=== PATIENT | female | born 1960 | race Caucasian/White ===

== ENCOUNTER 2016-07-31 10:57 | Emergency (ER) | payer OTHER | END 2016-07-31 12:55 | disposition home or self-care (01) | LOC: ER1 10:57 | DX: S39.012A Strain of muscle, fascia and tendon of lower back, initial encounter (principal); E11.9 Type 2 diabetes mellitus without complications; I10 Essential (primary) hypertension; Z88.5 Allergy status to narcotic agent; Z90.49 Acquired absence of other specified parts of digestive tract; X50.9XXA Other and unspecified overexertion or strenuous movements or postures, initial encounter; Y92.69 Other specified industrial and construction area as the place of occurrence of the external cause; Y99.0 Civilian activity done for income or pay; Z79.899 Other long term (current) drug therapy | CPT/HCPCS: 72131; 81001; 99284 ==

== ENCOUNTER → 2016-08-11 | Outpatient (CLI) | payer OTHER | LOC: KOH-I 08-04 08:30 | DX: R07.89 Other chest pain (principal); E11.65 Type 2 diabetes mellitus with hyperglycemia; E78.2 Mixed hyperlipidemia; I10 Essential (primary) hypertension; R53.83 Other fatigue | CPT/HCPCS: 74176; Q9962 ==

== ENCOUNTER → 2016-08-11 | Outpatient (CLI) | payer OTHER | LOC: LAB 09:06 | DX: E11.65 Type 2 diabetes mellitus with hyperglycemia (principal); E78.2 Mixed hyperlipidemia; I10 Essential (primary) hypertension; R07.89 Other chest pain; R53.83 Other fatigue | CPT/HCPCS: 36415; 82565; 84520 ==

== ENCOUNTER 2020-08-23 06:44 | Emergency (ER) | payer OTHER ==
[~2020-08-23 06:44] MED LIST: AMLODIPINE BESY10 MG PO
[2020-08-23] MEDS ORDERED: DIOVAN80 MG PO (07:37)
[2020-08-24 16:11] LABS: LYME IGG/IGM AB <0.91 ISR (0.00-0.90)
== END 2020-08-23 07:55 | disposition home or self-care (01) ==
LOC: ER1 06:44
PROVIDERS: Physician Assistant
DX: I86.3 Vulval varices (principal); I10 Essential (primary) hypertension; E11.9 Type 2 diabetes mellitus without complications; Z91.19 Patient's noncompliance with other medical treatment and regimen
CPT/HCPCS: 86618; 99281

== ENCOUNTER 2020-10-17 06:19 | Emergency (ER) | payer OTHER ==
[~2020-10-17 06:19] MED LIST changes: +DIOVAN80 MG PO
[2020-10-17 07:55] LABS: HEMOGLOBIN 14.8 gm/dl (12.3-15.3); RED BLOOD COUNT 4.92 M/UL (4.00-5.10); WHITE BLOOD COUNT 8.5 K/UL (4.5-11.0)
[2020-10-17 08:11] LABS: BUN/CREATININE RATIO 13 (0-10)
[2020-10-17] MEDS ORDERED: FLOMAX 0.4 MG0.4 MG PO (08:28)
[2020-10-17] MEDS ORDERED: ZOFRAN4 MG PO (09:31)
[2020-10-17] MEDS ORDERED: HYDROCODON-ACE1 EAC4 PO (09:53)
== END 2020-10-17 11:53 | disposition home or self-care (01) ==
LOC: ER1 06:19
PROVIDERS: Emergency Medicine
DX: N13.2 Hydronephrosis with renal and ureteral calculous obstruction (principal); E87.6 Hypokalemia
CPT/HCPCS: 80053; 83690; 85025; 96374; 96375; 99284; J1885; J2405; J2550